=== PATIENT | female | born 1980 | race Caucasian/White ===

== ENCOUNTER 2017-08-24 17:44 | Emergency (ER) | payer MEDICAID ==
[~2017-08-24] VITALS: Ht 160 cm; Wt 81.6 kg
[2017-08-24 20:52] VITALS: BP 109/66
== END 2017-08-24 20:52 | disposition home or self-care (01) ==
LOC: ED 17:44
DX: O26.892 Other specified pregnancy related conditions, second trimester (principal); R10.31 Right lower quadrant pain; Z3A.17 17 weeks gestation of pregnancy; V89.2XXA Person injured in unspecified motor-vehicle accident, traffic, initial encounter; Y93.89 Activity, other specified; Y99.8 Other external cause status; Y92.411 Interstate highway as the place of occurrence of the external cause
CPT/HCPCS: Q0092